=== PATIENT | female | born 1990 | race Caucasian/White ===

== ENCOUNTER 2018-04-27 15:37 | Day surgery (SDC) ==
[2018-04-27 16:15] LABS: #Eosinphils 0.1 thou/uL (0.0-0.7); #Lymphocytes 1.7 thou/uL (1.20-3.40); #Monocytes 0.8 thou/uL (0.11-0.59); %Basophils 0.3 % (0.0-1.0); %Eosinophils 1.1 % (0.0-10.0); %Lymphocytes 18.1 % (21.0-51.0); %Monocytes 8.4 % (0.0-10.0); %Neutrophils 72.1 % (42.0-75.0); Mean Corpuscular HGB CONC 34.7 g/dL (32.0-36.0); Mean Corpuscular Hemoglobin 28.8 pg (27.0-31.0); Mean Corpuscular Volume 83.1 fl (81.0-99.0); Mean Platelet Volume 6.5 fL (7.4-10.4); Platelet Count 289 thou/uL (130-400); RBC Distribution Width 13.4 % (11.5-14.5); Red Blood Cell (RBC) Count 4.16 mill/uL (4.20-5.40); White Blood Cell (WBC) Count 9.6 thou/uL (4.8-10.8)
[2018-04-27 16:37] LABS: ALT (SGPT) 87 U/L (8-55); AST (SGOT) 40 U/L (5-34); Albumin 3.6 g/dL (3.5-5.0); Alkaline Phosphatase 115 U/L (40-150); Anion Gap 14 mmol/L (10-20); BUN (Urea Nitrogen) 6 mg/dL (7.0-18.7); Bilirubin, Total 0.2 mg/dL (0.2-1.2); Calc. Creatinine Clearance 0 mL/min (70-130); Calcium 9.8 mg/dL (7.8-10.44); Carbon Dioxide 23 mmol/L (22-29); Chloride 103 mmol/L (98-107); Estimated GFR-MDRD Greater than 90; Globulin 3.7 g/dL (2.4-3.5); Glucose 79 mg/dL (70-105); Protein, Total 7.3 g/dL (6.0-8.3); Sodium 136 mmol/L (136-145)
[2018-04-27 16:58] VITALS: BMI 50.6
[2018-04-27 17:04] VITALS: BP 136/79; TEMP 98.6
--- NOTE | 2018-04-27 21:51 | PRG ---
DATE OF ENCOUNTER: 04/27/2018 OB ER ENCOUNTER PRIMARY PERFUSIONIST: Dr. Guilherme Moura. CHIEF COMPLAINT: Elevated blood pressure in clinic. HISTORY OF PRESENT ILLNESS: Patient is a 28-year-old G1, P0 female with an intrauterine at 34 weeks and 4 days, who was seen in clinic for routine visit and noted to have elevated blood press ure 140/100. Patient was sent to labor and delivery for further evaluation. Patient denies headache , fever, or fall. She denies abdominal pain. She reports that she has two cavities that are causing her a lot of pain and takes Tylenol and Tylenol No. 3 to help manage it. She has an appointment bennett jose to have a root canal done and extraction of another tooth. Patient denies taking any other ARB s or medication outside has been prescribed. Patient denies abdominal pain, denies shortness of gosia th, chest pain, nausea, vomiting, diarrhea, constipation, hip problems, knee problems, muscle weaknes s, vaginal bleeding, leakage of fluid, urinary problems, urgency, or frequency. PAST MEDICAL HISTORY: Cavities. PAST SURGICAL HISTORY: None. SOCIAL HISTORY: Patient admits to tobacco use at about 2 cigarettes a day. Denies drug or alcohol u se. ALLERGIES: No known drug allergies. FAMILY HISTORY: Noncontributory. REVIEW OF SYSTEMS: Per HPI. OB LABS: Unavailable. PHYSICAL EXAMINATION: VITAL SIGNS: Blood pressures have been in primarily 1-teens to 120s/60s to 70s. She did have a sing le blood pressure at 143/86. During counseling, pulse rate in the 80s, respiratory rate 20, satting 100% on room air, temperature 98.7. GENERAL: She appears to be in no acute distress. She is alert and oriented, cooperative and pleasan t to interact with. HEENT: Normocephalic, atraumatic. LUNGS: Clear to auscultation bilaterally. HEART: Regular rate and rhythm. ABDOMEN: Soft and nontender. She has no right upper quadrant tenderness to palpation. EXTREMITIES: Nontender, nonedematous. GENITOURINARY: Has been deferred. heart tracing performed and noted to be in the 130s with moderate long-term variability, positi ve accelerations, no decelerations. She has no contractions visible on the monitor. CMP was signifi cant with elevated AST of 40 and ALT of 87. Her creatinine 0.54 and potassium 4.0. CBC: White coun t 9.6, hemoglobin 12, hematocrit 34.6 and platelets 289,000. Urine iccmjtb-re-lututoehrn ratio was l ess than 0.23. ASSESSMENT AND PLAN: Patient is a 28-year-old G1, P0 female with a toothache and known cavity schedu led for a root canal and extraction tomorrow, who presented with elevated blood pressures. She has h ad primarily normal pressures here with a single elevation. She has no proteinuria of significance a nd her isolated LFTs though elevated are mild at this time. Patient has been taking Tylenol and Tyle nol No. 3 to manage her tooth pain. We did review the limitations on how much she can take and the p atient will be following up with her primary OB, Dr. Moura for repeat testing. Patient is being disc harged to home with precautions.
== END 2018-04-27 18:47 | disposition home or self-care (01) ==
LOC: L&D/OP 15:37
PROVIDERS: ATTEND Obstetrics & Gynecology
DX: O99.89 Other specified diseases and conditions complicating pregnancy, childbirth and the puerperium (principal); R03.0 Elevated blood-pressure reading, without diagnosis of hypertension; O99.333 Smoking (tobacco) complicating pregnancy, third trimester; F17.210 Nicotine dependence, cigarettes, uncomplicated; K08.89 Other specified disorders of teeth and supporting structures; Z3A.34 34 weeks gestation of pregnancy
CPT/HCPCS: 36415; 80053; 82570; 84156; 85025; 99283

== ENCOUNTER 2018-05-03 23:29 | Inpatient (IN) | payer MEDICAID, OTHER ==
[2018-05-04 00:14] VITALS: BMI 50.6
[2018-05-04] MEDS ORDERED: Ondansetron HCl/PF 4 MG/2 ML Vial IVP PRN (00:37)
[2018-05-04] MEDS ORDERED: Zolpidem Tartrate 5 MG TAB PO PRN (00:37)
[2018-05-04] MEDS ORDERED: Promethazine HCl 25 MG/ML VIAL IM PRN (00:37)
[2018-05-04] MEDS: Lactated Ringer's 1,000 ML IV SCH ×2 (01:45→07:32)
[2018-05-04 01:55] LABS: Creatinine, Urine 31.33 mg/dL (47-110); Protein, Urine Random Quant Less than 10 mg/dL
[2018-05-04 02:23] LABS: Hemoglobin 11.4 g/dL (12.0-16.0); Mean Corpuscular HGB CONC 34.4 g/dL (32.0-36.0); Mean Corpuscular Hemoglobin 28.4 pg (27.0-31.0); Mean Corpuscular Volume 82.7 fL (78.0-98.0); Mean Platelet Volume 6.8 fL (7.4-10.4); Platelet Count 316 thou/uL (130-400); RBC Distribution Width 13.6 % (11.5-14.5); Red Blood Cell (RBC) Count 4.02 mill/uL (4.20-5.40); White Blood Cell (WBC) Count 8.8 thou/uL (4.8-10.8)
[2018-05-04 02:42] LABS: ALT (SGPT) 143 U/L (8-55); AST (SGOT) 55 U/L (5-34); Albumin 3.5 g/dL (3.5-5.0); Alkaline Phosphatase 109 U/L (40-150); Anion Gap 14 mmol/L (10-20); BUN (Urea Nitrogen) 8 mg/dL (7.0-18.7); Bilirubin, Total 0.2 mg/dL (0.2-1.2); Calc. Creatinine Clearance 303 mL/min (70-130); Calcium 9.8 mg/dL (7.8-10.44); Carbon Dioxide 21 mmol/L (22-29); Chloride 106 mmol/L (98-107); Estimated GFR-MDRD Greater than 90; Globulin 3.4 g/dL (2.4-3.5); Glucose 90 mg/dL (70-105); Protein, Total 6.9 g/dL (6.0-8.3); Sodium 137 mmol/L (136-145)
[2018-05-04 03:00] LABS: HBSAg Index 0.16 S/CO (0-0.99); Hep B Surf Ag Non-Reactive S/CO (NonReactive)
--- NOTE | 2018-05-04 06:20 | HP ---
DATE OF ADMISSION: 05/04/2018 REASON FOR ADMISSION: Elevated blood pressures suspected possible early severe PIH versus HELLP synd luis angel at 35-36 weeks gestation. HISTORY OF PRESENT ILLNESS: Ms. Saunders is a 28-year-old 1, para 0 with EDC of 06/02/[address] Moura. The patient has been noted to have some slightly elevated blood pressures in the off ice and had LFTs performed last week and then yesterday. The ALT and AST had doubled. The patient's blood pressures had been good and she was brought in for further evaluation. OB AND MAINTENANCE FITTER HISTORY: As noted. The patient's White's classification A1 gestational diabetes. Blood type A positive, antibody negative, group B strep not done. Other labs not available on the chart. PAST MEDICAL HISTORY: The patient states that she had some essential hypertension in the past. PAST SURGICAL HISTORY: Denies. ALLERGIES: Denies. MEDICATIONS: vitamins. FAMILY HISTORY/REVIEW OF SYSTEMS: Noncontributory. PHYSICAL EXAMINATION: GENERAL: Obese white female in no acute distress. VITAL SIGNS: Initial blood pressures 120s to 130s over 80s. Highest blood pressure has been 143/86. Average blood pressures have been in 1-teens to 120s, temperature 98.7, respirations 18, pulse 85. HEENT: Within normal limits. LUNGS: Clear to auscultation bilaterally. HEART: Regular rate and rhythm. ABDOMEN: Soft and nontender. She does not have any significant right upper quadrant tenderness. No CVA tenderness noted. PELVIC: Vulva is without lesions. Vagina is without discharge. Group B strep culture collected. C ervix is fingertip, long, and high, presenting part not palpated. EXTREMITIES: With 1+ edema. RADIOLOGY: The patient had an ultrasound at [facility] last week which was reporte d as normal rate of growth, cephalic presentation. LABORATORY STUDIES: The patient's hematocrit is within normal limits at 33%, platelet count is 316, white count is 8.8, creatinine is within normal limits at 0.54, glucose was 90. AST is elevated at 5 5, ALT is elevated at 143 with normal range up 55. Urine protein was negative dip. A random urine p rotein is less than 10 and creatinine was 31.3 with a normal protein to creatinine ratio. IMPRESSION: Isolated elevated liver enzymes without other abnormality noted at 35-36 weeks gestation . PLAN: The patient was admitted, will follow up with Dr. Moura. Anticipate serial LFTs as well as bl ood pressures. Group B strep culture sent and we will follow up that result.
--- NOTE | 2018-05-04 08:22 | PDOC.LDPN ---
Labor & Delivery Progress Note - Subjective Subjective: comfortable, other (no itching, no pain, no N/V/D) - Objective Vital signs reviewed and normal: yes General: resting - Assessment (1) Elevated transaminase level Code(s): R74.0 - NONSPEC ELEV OF LEVELS OF TRANSAMNS & LACTIC ACID DEHYDRGNSE Current Visit: Yes Status: Acute (2) 35 weeks gestation of Code(s): Z3A.35 - 35 WEEKS GESTATION OF Current Visit: Yes Status : Acute Plan: other -: HD2 -Unexplained elevated transaminase level. Acute hepatitis panel and RUQ sono ordered, GI consult pending. Bile acids pending but no si/sx of cholestasis. BP normal with prolonged observation, concern for acute fatty liver of . Discussed plan of care with patient.
--- NOTE | 2018-05-04 08:26 | PDOC.LDPN ---
Labor & Delivery Progress Note - Subjective Subjective: comfortable - Objective Vital signs reviewed and normal: yes General: resting Uterine fundus: non tender Dilation: 3 Effacement: 50% Station: -2 FHT: category 1 AROM: clear fluid - Assessment (1) Elevated transaminase level Code(s): R74.0 - NONSPEC ELEV OF LEVELS OF TRANSAMNS & LACTIC ACID DEHYDRGNSE Current Visit: Yes Status: Acute (2) 35 weeks gestation of Code(s): Z3A.35 - 35 WEEKS GESTATION OF Current Visit: Yes Status : Acute Plan: continue plan of care, pitocin for augmentation
[2018-05-04 09:41] LABS: ALT (SGPT) 146 U/L (8-55); AST (SGOT) 61 U/L (5-34); Albumin 3.4 g/dL (3.5-5.0); Alkaline Phosphatase 107 U/L (40-150); Anion Gap 14 mmol/L (10-20); BUN (Urea Nitrogen) 5 mg/dL (7.0-18.7); Bilirubin, Total 0.3 mg/dL (0.2-1.2); Calc. Creatinine Clearance 334 mL/min (70-130); Calcium 9.6 mg/dL (7.8-10.44); Carbon Dioxide 23 mmol/L (22-29); Chloride 105 mmol/L (98-107); Estimated GFR-MDRD Greater than 90; Globulin 3.5 g/dL (2.4-3.5); Glucose 84 mg/dL (70-105); Potassium 3.6 mmol/L (3.5-5.1); Protein, Total 6.9 g/dL (6.0-8.3); Sodium 138 mmol/L (136-145)
[2018-05-04 10:01] LABS: HBCM Index 0.08 S/CO (0-0.79); Hep A IgM AB Non-Reactive (NonReactive); Hep A IgM S/CO 0.16 S/CO (0-0.79); Hep B Surf Ag Non-Reactive S/CO (NonReactive); Hep C IgG Ab Non-Reactive (NonReactive); Hep C Index 0.17 S/CO (0-0.79); Hepatitis B Core IGM Abs Non-Reactive (NonReactive)
--- NOTE | 2018-05-04 11:08 | ULT ---
RIGHT UPPER QUADRANT ULTRASOUND: Date: 05/04/18 HISTORY: 28-year-old female with elevated liver function tests. FINDINGS: Liver echogenicity is slight coarse. There are multiple mobile gallstones without overt gallbladder w all thickening or pericholecystic fluid. There is also minimal sludge within the gallbladder. Common duct is 0.5 cm. Visualized pancreas and right kidney are unremarkable. IMPRESSION: Multiple mobile gallstones with minimal sludge within the gallbladder without overt gallbladder wall thickening or pericholecystic fluid or ductal dilatation. Slightly coarse liver echogenicity. POS: [facility]
--- NOTE | 2018-05-04 11:48 | ULT ---
OB ULTRASOUND COMPLETE GREATER THAN 14 WEEKS: History: 28-year-old female with history of elevated LFTs. Evaluate for size and dates. FINDINGS: Exam is limited by body habitus and somewhat elevated gestational age. Single viable intrauterine fetus in cephalic presentation. The placenta is anterior. heart rate 139 beats/minute. Cervical length is not adequately visualized. Amniotic fluid is within normal limi ts with an ABDULLAHI of 10.9 cm. anatomy: anatomy is limited because of body habitus and gestational age. brain, four chamber heart, stomach, kidneys, cord insert and bladder are evaluated. biometry: BDP 9.3 cm - 37 weeks 5 days HC 33.4 cm - 38 weeks 1 day AC 34.1 cm - 38 weeks 0 day FL 7.4 cm - 37 weeks 6 days IMPRESSION: Gestational age average 37 weeks 6 days. EDC 05-19-18. Estimated weight 3345 grams. +/- 495 gram s in the 94th percentile. POS: [facility]
[2018-05-04 17:01] LABS: Syphilis Antibody Nonreactive (Nonreactive); Syphilis Antibody Index 0.03 S/CO (<1.00 Non-Reactive)
--- NOTE | 2018-05-04 17:15 | PDOC.LDPN ---
Labor & Delivery Progress Note - Subjective Subjective: comfortable - Objective Abnormal vital signs: persistent mild range General: resting - Assessment (1) Elevated transaminase level Code(s): R74.0 - NONSPEC ELEV OF LEVELS OF TRANSAMNS & LACTIC ACID DEHYDRGNSE Current Visit: Yes Status: Acute (2) 35 weeks gestation of Code(s): Z3A.35 - 35 WEEKS GESTATION OF Current Visit: Yes Status : Acute Plan: continue plan of care -: Mild range BP noted this afternoon-pt reports she is stressed dealing with mother in law. I discussed that with mild range BP and increasing LFTs that delivery will likely be indicated. Discussed Celestone for FLM now and repeat in 24hrs, serial monitoring of BP and repeat labs in the AM. GI consult pending. Will likely dispo for delivery plan in AM unless severe range BP noted tonight or VEGETABLE COOK sx reported.
[2018-05-04] MEDS: Betamet Acet/Betamet Na Ph 30 MG/5 ML VIAL IM SCH (17:29)
--- NOTE | 2018-05-05 00:53 | CON ---
DATE OF CONSULTATION: 05/04/2018 HISTORY OF PRESENT ILLNESS: The patient is a 28-year-old 1, para 0 with admission because of elevated blood pressure and abnormal LFTs. The patient is denying any abdominal pain, any nausea or vomiting. She has not had prior abnormalities with her liver in the past. She takes no medications . She does not drink alcohol. PAST MEDICAL HISTORY: Includes hypertension and gestational diabetes. PAST SURGICAL HISTORY: Negative. ALLERGIES: No known allergies. MEDICATIONS: Include vitamins. SOCIAL HISTORY: She is a former smoker, does not drink alcohol. FAMILY HISTORY: Negative for liver disease. REVIEW OF SYSTEMS: Constitutional: No fever, chills, or weight loss. Positive for weight gain with . HEENT: Negative for sore throat or earaches. Cardiovascular: Negative for chest pain or palpitation. Pulmonary: Negative for cough, shortness of breath or wheezing. Gastrointestinal: See above. : No hematuria or dysuria. Musculoskeletal: No joint pain or muscle weakness. Skin : No rashes. Neurologic: No numbness or seizure activity. PHYSICAL EXAMINATION: GENERAL: Shows an overweight, obese female, obviously . VITAL SIGNS: Temperature 98.4, pulse 85, respiratory rate 18, blood pressure 139/86. HEENT: Unremarkable. NECK: Supple. CHEST: Clear. CARDIOVASCULAR: Regular rate and rhythm. ABDOMEN: Shows a gravid uterus. No right upper quadrant tenderness is appreciable. LABORATORY: Shows a hemoglobin 11.4, hematocrit 33.3. LFTs show an AST of 55, ALT of 143, repeat wa s 61 and 146. Albumin is 3.4. Hepatitis panel was negative. Abdominal ultrasound showed changes co nsistent with fatty liver and gallstones, no ductal dilatation is appreciated. ASSESSMENT: 1. A 36-week . 2. Abnormal liver function tests - her abnormalities well within the range of fatty liver. There is no evidence of acute fatty liver of , although this could be early manifestation of that, o ther possibilities include HELLP syndrome or preeclampsia, although the patient's platelets are hugo l. My overall suspicion is this is a fatty liver. RECOMMENDATIONS: 1. Continue to monitor serial hemoglobin and hematocrit. 2. If transaminases are in the 200s-300s range, then stronger consideration would be given to one of the other syndromes as mentioned above.
[2018-05-05 07:07] LABS: #Lymphocytes 1.6 thou/uL (1.20-3.40); #Monocytes 0.6 thou/uL (0.11-0.59); #Neutrophils 6.9 thou/uL (1.40-6.50); %Basophils 0.1 % (0.0-1.0); %Eosinophils 0.4 % (0.0-10.0); %Lymphocytes 17.3 % (21.0-51.0); %Monocytes 6.8 % (0.0-10.0); %Neutrophils 75.4 % (42.0-75.0); Hemoglobin 11.6 g/dL (12.0-16.0); Mean Corpuscular HGB CONC 33.2 g/dL (32.0-36.0); Mean Corpuscular Hemoglobin 28.2 pg (27.0-31.0); Mean Corpuscular Volume 84.9 fL (78.0-98.0); Mean Platelet Volume 6.9 fL (7.4-10.4); Platelet Count 278 thou/uL (130-400); RBC Distribution Width 13.7 % (11.5-14.5); Red Blood Cell (RBC) Count 4.12 mill/uL (4.20-5.40); White Blood Cell (WBC) Count 9.1 thou/uL (4.8-10.8)
[2018-05-05 07:39] LABS: ALT (SGPT) 187 U/L (8-55); AST (SGOT) 85 U/L (5-34); Albumin 3.5 g/dL (3.5-5.0); Alkaline Phosphatase 114 U/L (40-150); Anion Gap 15 mmol/L (10-20); BUN (Urea Nitrogen) 6 mg/dL (7.0-18.7); Bilirubin, Total 0.2 mg/dL (0.2-1.2); Calc. Creatinine Clearance 303 mL/min (70-130); Carbon Dioxide 23 mmol/L (22-29); Chloride 106 mmol/L (98-107); Estimated GFR-MDRD Greater than 90; Globulin 3.6 g/dL (2.4-3.5); Glucose 110 mg/dL (70-105); Potassium 4.5 mmol/L (3.5-5.1); Protein, Total 7.1 g/dL (6.0-8.3); Sodium 139 mmol/L (136-145)
[2018-05-05] MEDS ORDERED: Ibuprofen 800 MG TAB PO PRN (08:47)
[2018-05-05] MEDS ORDERED: Lidocaine 1% (PF) 30 ML VIAL SC PRN (08:47)
[2018-05-05] MEDS ORDERED: NS / Oxytocin 40 units/1000ml 1,000 ML IV PRN (08:47)
[2018-05-05] MEDS ORDERED: Acetaminophen/Codeine 30-300mg Tablet PO PRN ×2 (08:47)
--- NOTE | 2018-05-05 08:53 | PDOC.LDPN ---
Labor & Delivery Progress Note - Subjective Subjective: comfortable - Objective Vital signs reviewed and normal: yes Abnormal vital signs: BP consistent 140/80-90s General: NAD FHT: category 1 - Assessment (1) Elevated transaminase level Code(s): R74.0 - NONSPEC ELEV OF LEVELS OF TRANSAMNS & LACTIC ACID DEHYDRGNSE Current Visit: Yes Status: Acute (2) 36 weeks gestation of Code(s): Z3A.36 - 36 WEEKS GESTATION OF Current Visit: Yes Status : Acute (3) Elevated blood pressure affecting in third trimester, antepartum Code(s): O16.3 - UNSPECIFIED MATERNAL HYPERTENSION, THIRD TRIMESTER Current Visit: Yes Status: Acute Plan: other -: A/P: 28yo G1 with increase BP to persistent mild range BP with lab abnormalities , steadily increasing transaminase levels. S/p GI consult yesterday with lab abnormalities suspected to be due to acute fatty liver vs PIH related. Pt received Celestone x 1 dose yesterday in anticipation in possible change in plan to delivery. We discussed indication for delivery today in detail as well as methods used for IOL. We discussed oral cytotec this AM, possible Cook balloon placement vs pitocin when cervix is more favorable. We discussed magnesium for seizure prophylaxis for any EMBOSSING TOOLSETTER or BP increase to severe range. Pt questions answered in detail.
[2018-05-05] MEDS ORDERED: Penicillin G Potassium 5 MILL.UNITS in Sodium Chloride 0.9% 100 ML IVPB SCH (09:00)
[2018-05-05] MEDS: Lactated Ringer's 1,000 ML IV SCH (09:15)
[2018-05-05] MEDS: Misoprostol 100 MCG TAB PO SCH ×5 (09:41→21:00)
[2018-05-05] MEDS: Penicillin G 2.5 MILL.units 2.5 MILL.UNITS in Premix Bag 1 BAG IVPB SCH ×3 (12:53→21:28)
--- NOTE | 2018-05-05 16:44 | PDOC.EVN ---
Event Note - Event Note Event Note: On phone with Martell, we will cover tonight until derrick in AM...on cytotec now. Case reviewed.
[2018-05-05] MEDS: Betamet Acet/Betamet Na Ph 30 MG/5 ML VIAL IM SCH (18:34)
--- NOTE | 2018-05-05 18:41 | PDOC.LDPN ---
Labor & Delivery Progress Note - Objective Vital signs reviewed and normal: yes (Last BP was 120/80) General: NAD Uterine fundus: non tender SVE: FT at 1800 by RN Dilation: FT Effacement: 25% Station: -2 FHT: category 1 [place] contractions every: few - Assessment (1) 36 weeks gestation of Code(s): Z3A.36 - 36 WEEKS GESTATION OF Current Visit: Yes Status : Acute (2) Elevated blood pressure affecting in third trimester, antepartum Code(s): O16.3 - UNSPECIFIED MATERNAL HYPERTENSION, THIRD TRIMESTER Current Visit: Yes Status: Acute (3) Elevated transaminase level Code(s): R74.0 - NONSPEC ELEV OF LEVELS OF TRANSAMNS & LACTIC ACID DEHYDRGNSE Current Visit: Yes Status: Acute Plan: continue plan of care (I have seen the patient at bedside. Plan of care reviewed. We will do a total of 6 oral cytotec doses (50mg). Induction started at 0900 this am so we will need to reevaluate plan at 24 hour trial of induction. Cook balloon ideal once cervix dilated to allow it. Celestone #2 pending. Patient's questions answered.)
--- NOTE | 2018-05-05 22:06 | PDOC.EVN ---
Event Note - Event Note Event Note: Cytotec #5 given at 2100. Plan reviewed with Conor
--- NOTE | 2018-05-05 22:57 | PDOC.EVN ---
Event Note - Event Note Event Note: Received report from Dr. Sinclair. Pt. is sleeping Will get last dose of oral Cytotec at midnight. Will start pitocin at 4 AM. FHTs are reassuring. Continue present plan of care.
[2018-05-06] MEDS: Penicillin G 2.5 MILL.units 2.5 MILL.UNITS in Premix Bag 1 BAG IVPB SCH ×4 (01:33→13:00)
[2018-05-06] MEDS ORDERED: NS w/ Oxytocin 10 units 500 ML IV SCH (04:15)
[2018-05-06] MEDS: Misoprostol 100 MCG TAB PO SCH ×3 (07:09→09:02)
[2018-05-06] MEDS: Lactated Ringer's 1,000 ML IV SCH ×3 (07:10→07:29)
[2018-05-06] MEDS: Butorphanol Tartrate 1 MG/ML VIAL SLOW IVP PRN ×2 (10:09→11:51)
--- NOTE | 2018-05-06 10:12 | PDOC.LDPN ---
Labor & Delivery Progress Note - Subjective Subjective: comfortable ( some hip pain, no pih sx) - Objective Vital signs reviewed and normal: yes (occ mild range bp) General: NAD Uterine fundus: non tender Dilation: 2 Effacement: 50% Station: -2 (arom clear) FHT: category 1 [place] contractions every: 5min AROM: clear fluid - Assessment (1) Severe preeclampsia Code(s): O14.10 - SEVERE PRE-ECLAMPSIA, UNSPECIFIED TRIMESTER Current Visit: Yes Status: Acute Qualifiers: Trimester: third trimester Qualified Code(s): O14.13 - Severe pre-eclampsia , third trimester (2) 36 weeks gestation of Code(s): Z3A.36 - 36 WEEKS GESTATION OF Current Visit: Yes Status : Acute Plan: labor augmentation -: IUP at 36w1d with severe features of preeclampsia based on increasing LFTs and elevated BP. No sx PIH, mild range BPs, recheck pih labs this am, Mag once active labor. Do not feel pt case represents acute fatty liver as glucose normal A1GDM- glucose with am labs. RUQ sono shows gallstones and sludge, will fu with GS as outpt, asx at this time. IOL- cont pitocin, Pt declined Cook, SVE appropriate for AROM, performed clear fluid noted. Pn pcn for gbs ppx s/p bmz x 2 for prematurity FHT reassuring.
[2018-05-06 10:35] LABS: #Lymphocytes 1.7 thou/uL (1.20-3.40); #Monocytes 0.9 thou/uL (0.11-0.59); #Neutrophils 7.9 thou/uL (1.40-6.50); %Basophils 0.2 % (0.0-1.0); %Eosinophils 0.3 % (0.0-10.0); %Lymphocytes 16.1 % (21.0-51.0); %Monocytes 8.5 % (0.0-10.0); %Neutrophils 74.9 % (42.0-75.0); Hemoglobin 11.8 g/dL (12.0-16.0); Mean Corpuscular HGB CONC 33.4 g/dL (32.0-36.0); Mean Corpuscular Hemoglobin 27.8 pg (27.0-31.0); Mean Corpuscular Volume 83.3 fL (78.0-98.0); Mean Platelet Volume 6.5 fL (7.4-10.4); Platelet Count 304 thou/uL (130-400); RBC Distribution Width 13.8 % (11.5-14.5); Red Blood Cell (RBC) Count 4.23 mill/uL (4.20-5.40); White Blood Cell (WBC) Count 10.5 thou/uL (4.8-10.8)
[2018-05-06 11:05] LABS: ALT (SGPT) 263 U/L (8-55); AST (SGOT) 127 U/L (5-34); Albumin 3.6 g/dL (3.5-5.0); Alkaline Phosphatase 112 U/L (40-150); Anion Gap 14 mmol/L (10-20); BUN (Urea Nitrogen) 5 mg/dL (7.0-18.7); Bilirubin, Total 0.3 mg/dL (0.2-1.2); Calc. Creatinine Clearance 341 mL/min (70-130); Calcium 9.5 mg/dL (7.8-10.44); Carbon Dioxide 21 mmol/L (22-29); Chloride 107 mmol/L (98-107); Estimated GFR-MDRD Greater than 90; Glucose 97 mg/dL (70-105); Potassium 3.9 mmol/L (3.5-5.1); Protein, Total 6.6 g/dL (6.0-8.3); Sodium 138 mmol/L (136-145)
[2018-05-06] MEDS ORDERED: Bicitra 30 ML UDCUP ONE (13:25)
[2018-05-06] MEDS ORDERED: CEFAZOLIN/Water 2 GM/20 ML SYRINGE SLOW IVP SCH (13:30)
[2018-05-06] MEDS ORDERED: Fentanyl 100 MCG/2 ML VIAL ONE ×2 (13:37→13:44)
[2018-05-06] MEDS ORDERED: Carboprost 250 MCG/ML AMP ONE (13:37)
[2018-05-06] MEDS ORDERED: Misoprostol 200 MCG TAB ONE (13:38)
[2018-05-06] MEDS: Carboprost 250 MCG/ML AMP ONE ×2 (13:39→15:12)
[2018-05-06] MEDS ORDERED: Midazolam HCl 2 mg/2 ml Vial ONE (13:43)
[2018-05-06] MEDS ORDERED: Ondansetron HCl/PF 4 MG/2 ML Vial IVP PRN ×4 (13:55→15:05)
[2018-05-06] MEDS ORDERED: Eucerin (Mineral Oil/Petrolatum,White) 30 gm Jar TOP PRN (13:55)
[2018-05-06] MEDS ORDERED: Naloxone HCl 0.4 mg/ml Vial IVP PRN ×2 (13:55)
[2018-05-06] MEDS ORDERED: Meperidine HCl/PF 25 MG/ML VIAL SLOW IVP PRN (13:55)
[2018-05-06] MEDS ORDERED: Promethazine HCl 25 MG/ML VIAL IM PRN ×2 (13:55→14:05)
[2018-05-06] MEDS ORDERED: Promethazine HCl 25 MG SUPP PR PRN (13:55)
[2018-05-06] MEDS ORDERED: Ketorolac Tromethamine 30 MG/ML VIAL IVP PRN ×2 (13:55→18:20)
[2018-05-06] MEDS ORDERED: HYDROmorphone 2 MG/ML VIAL SLOW IVP PRN (13:55)
[2018-05-06] MEDS ORDERED: diphenhydrAMINE 50 MG/ML VIAL IVP PRN ×2 (13:55→14:05)
[2018-05-06] MEDS ORDERED: Naloxone HCl 0.4 mg/ml Vial IV PRN ×2 (13:55→14:05)
[2018-05-06] MEDS ORDERED: Glycopyrrolate 0.2 MG/ML 5 ML SYRINGE ONE (13:59)
[2018-05-06] MEDS ORDERED: Communication Order-Pharmacy FS SCH ×2 (14:00→14:15)
[2018-05-06] MEDS ORDERED: Ketorolac Tromethamine 30 MG/ML VIAL IVP SCH (14:00)
[2018-05-06] MEDS ORDERED: diphenhydrAMINE 50 MG/ML VIAL IM PRN (14:05)
[2018-05-06] MEDS ORDERED: diphenhydrAMINE 25 MG CAP PO PRN (14:05)
[2018-05-06] MEDS ORDERED: Zolpidem Tartrate 5 MG TAB PO PRN (14:05)
[2018-05-06] MEDS ORDERED: Morphine CADD 1 MG/ML CADD IVPB PRN (14:05)
[2018-05-06] MEDS ORDERED: Fentanyl 250 MCG/5 ML VIAL ONE (14:13)
--- NOTE | 2018-05-06 14:20 | PDOC.OPDEL ---
OB Operative/Delivery Note Delivery Dr/Surgeon: Gene Assist: Horacio Pre-Delivery Diagnosis: non-reassuring tracing (cord prolapse, 36w IUP, PEC with severe features) Procedure/Post Delivery Dx: primary low transverse CS (stat) Weeks gestation: 36 Anesthesia: other (general) - Findings A Sex: male - Additional Findings/Plan Placenta delivered: spontaneous findings: low transverse hysterotomy without extension, normal uterus, normal tubes, normal ovaries Estimated blood loss: 1200 Compilations/Other Findings: Cord prolapse with variables and min btbv, head elevated off cord and rushed to OR with vaginal hand by MD then switched out to RN in OR. Prepped and draped, stat CS carried out and infant delivered shortly after cut. Cord gas collected and placenta delivered, to path. Uterus boggy and hemabate and cytotec called for. Uterus closed hemabate and cytotec given, additional dose of hemabate given due to vaginal trickle on exam. following this and complete 2 layer closure uterine tone improved and appropriate lochia noted. Cord gas pending. Post delivery plan: recovery in LICU (Mag recovery)
[2018-05-06] MEDS ORDERED: Magnesium Sulfate 20 gm/500 ml 20 GM/500 ML BAG ONE (14:38)
[2018-05-06] MEDS ORDERED: Morphine CADD 100 ML ONE (14:46)
[2018-05-06 14:49] LABS: Actual Bicarbonate (HCO3a) 27.8 mEq/L (22-28); Base Excess (BEa) -2.2 mEq/L (-2.0 to +3.0)
[2018-05-06] MEDS ORDERED: Lanolin Ointment 7 GM TUBE TOP PRN (15:05)
[2018-05-06] MEDS ORDERED: HYDROcodone/Acetaminophen 5/325 mg Tablet PO PRN ×2 (15:05)
[2018-05-06] MEDS ORDERED: Adacel (T-DAP) 0.5 ML VIAL IM ONE (15:05)
[2018-05-06] MEDS ORDERED: Calcium Gluconate 4.6 MEQ in Sodium Chloride 0.9% 100 ML IVPB PRN (15:05)
[2018-05-06] MEDS ORDERED: Magnesium Sulfate 20 GM/WATER 500 ML BAG IVPB SCH (15:05)
[2018-05-06] MEDS ORDERED: Ferrous Sulfate 325 MG TAB PO SCH (21:00)
[2018-05-06] MEDS: Docusate Calcium (SURFAK) 240 MG CAP PO SCH (21:51)
[2018-05-06] MEDS: Magnesium Sulfate 20 gm/500 ml 20 GM/500 ML BAG IVPB SCH (23:27)
[2018-05-07] MEDS ORDERED: Ketorolac Tromethamine 30 MG/ML VIAL ONE ×2 (03:43→16:09)
[2018-05-07] MEDS: Ketorolac Tromethamine 30 MG/ML VIAL IVP PRN ×2 (03:47→16:12)
[2018-05-07] MEDS: Lactated Ringer's 1,000 ML IV SCH (05:03)
[2018-05-07 05:48] LABS: Hemoglobin 9.5 g/dL (12.0-16.0); Mean Corpuscular HGB CONC 32.9 g/dL (32.0-36.0); Mean Corpuscular Hemoglobin 27.7 pg (27.0-31.0); Mean Platelet Volume 6.7 fL (7.4-10.4); Platelet Count 312 thou/uL (130-400); RBC Distribution Width 13.8 % (11.5-14.5); Red Blood Cell (RBC) Count 3.42 mill/uL (4.20-5.40)
--- NOTE | 2018-05-07 08:18 | PDOC.PP ---
Post Progress Note Post Day #: 1 PO intake tolerated: no Flatus: no Ambulation: no Vital Signs (12 hours) Temp Pulse Resp 05/07/18 04:00 98.0 F 78 18 05/07/18 03:00 98.0 F 05/07/18 00:00 98.2 F 75 18 05/06/18 23:00 98.2 F Weight Weight 268 lb - Physical Examination General: NAD Cardiovascular: RRR Respiratory: non-labored breathing Abdominal: no distention, appropriately TTP Extremities: negative homans (B) Skin: no rash Neurological: no gross focal deficits (DTR 2+) Psychiatric: normal affect Result Diagrams: 05/07/18 05:29 05/06/18 10:29 Additional Labs: Post Labs Blood Type A POSITIVE 05/04/18 02:35 Hep Bs Antigen Non-Reactive S/CO (NonReactive) 05/04/18 08:35 (1) Umbilical cord prolapse in labor and delivery, delivered Code(s): O69.0XX0 - LABOR AND DELIVERY COMPLICATED BY PROLAPSE OF CORD, UNSP Status: Acute (2) 36 weeks gestation of Code(s): Z3A.36 - 36 WEEKS GESTATION OF Status: Acute (3) Severe preeclampsia Code(s): O14.10 - SEVERE PRE-ECLAMPSIA, UNSPECIFIED TRIMESTER Status: Acute Qualifiers: Trimester: third trimester Qualified Code(s): O14.13 - Severe pre-eclampsia , third trimester - Assessment/Plan POD1 from stat PCS for cord prolapse. VSSAF, severe range BPs yesterday, now wnl. Severe PEC- on mag for severe features, BP wnl, trend labs this am, UOP good, no sx mag toxicity. Postop- Hgb appropriate anemia due to surgical blood loss, no sx of ongoing bleeding. Cont Iron once ROBF. Routine advances. 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 Gallstones- FU GS outpt. DC Mag at 24hr and transfer to floor
[2018-05-07] MEDS: Prenatal Vitamin 1 TAB PO SCH (09:21)
[2018-05-07] MEDS: Docusate Calcium (SURFAK) 240 MG CAP PO SCH ×2 (09:21→22:09)
--- NOTE | 2018-05-07 09:48 | OP ---
DATE OF OPERATION: 05/06/2018 PREOPERATIVE DIAGNOSES: 1. Cord prolapse. 2. Severe preeclampsia. 3. Intrauterine at 36 weeks. 4. A1GDM 5. Obesity. POSTOPERATIVE DIAGNOSES: 1. Cord prolapse. 2. Severe preeclampsia. 3. Intrauterine at 36 weeks. 4. A1GDM 5. Obesity. 6. Uterine atony PROCEDURE: Stat primary low transverse section via Pfannenstiel skin incision. ATTENDING SURGEON: Karina Mills M.D. STONE UNLOADER: Bobby Leonard. ANESTHESIA: General endotracheal. ESTIMATED BLOOD LOSS: 1200 mL. IVF: 1 liter crystalloid. URINE OUTPUT: 700 mL of clear urine. COMPLICATIONS: None. DRAINS: Tracy catheter. PATHOLOGY: Placenta. FINDINGS: On arrival to the operating room, the cord was palpable with a pulse that was decreased, most likely in the 80s. The patient was prepped and draped in an emergent manner after prepping with chlorhexidine and findings included a male in cephalic presentation with clear amniotic fluid, Apgars pending, weight 6 pounds and 15 ounces. Cord pH was 7.19, pCO2 is 74.1, base excess negative 2.2. She had a hysterotomy without extension. Normal uterus, ovaries and tubes bilaterally. The uterus was atonic most likely secondary to general anesthesia that eventually resolved with infusion of Pitocin, 2 doses of Hemabate and 800 mcg of Cytotec placed in the uterus. OPERATIVE INDICATIONS: A 28-year-old G1, P0, had been admitted to Labor and Delivery at 36 weeks secondary to increasing LFTs. She developed intermittent mild range blood pressures. She had normal kidney function and negative protein in her urine. She received 2 doses of betamethasone and remained asymptomatic from a preeclampsia standpoint. She had liver enzymes that were checked on a daily basis that were increasing and met criteria for preeclampsia based on elevated blood pressures and abnormal liver enzymes and therefore she was dispositioned for induction of labor. She received oral Cytotec over the course of approximately 24 hours and then Pitocin augmentation. She progressed to 2 cm and 50% effaced and was artificially ruptured. On the morning of 2017, the patient began having more painful contractions and due to difficulty with contraction monitoring, an intrauterine pressure catheter was placed. At approximately 10:00 a.m., the patient began having some variable decels and intermittent minimal variability. Amnioinfusion was began by the nurse, which did improve the variable decels, however, she continued to have mild variables with the majority of her contractions. On my sterile vaginal exam at approximately 1:15 p.m., she was 4 cm dilated, 70% effaced and -2 station. The head was palpable; however, there was a cord just to the left of the head and at this point, stat was called secondary to cord prolapse. My hand remained in the vagina on the way back to the operating room. OPERATIVE TECHNIQUE: Once the patient arrived in the operating room, she was moved to the table with my hand still in place in the vagina holding the head up off the cord. The cord had a palpable pulse, was approximately in the 80s. The patient was secured to the bed and was prepped and draped with chlorhexidine and at that time, the nurse and I switched out so that I could scrubbed in and the patient was put to sleep and after insertion of the ET tube , skin incision was made with a knife and carried down to the fascia with the knife and the subcutaneous tissue was manually dissected. The fascia was incised with a knife and manually extended bilaterally. The superior aspect of the fascia was tented with 2 Kochers and dissected off the rectus with the Mayos. The inferior aspect of the fascia was tented with 2 Kochers and dissected off the rectus to the pubic symphysis and the peritoneum was bluntly entered and manually retracted and the bladder blade was placed. The lower uterine segment was incised in a transverse fashion and extended with the Perkins maneuver. The infant's head was brought to the hysterotomy and delivered with fundal pressure. The infant had good tone and was crying quickly after . The cord was clamped and handed to awaiting archana team. Cord gases obtained and placenta was spontaneously delivered and sent for pathology. The uterus was noted to be boggy and was exteriorized and cleared of all clots and debris and uterotonics were called for. At that time, Pitocin was infusing. The hysterotomy was then repaired with #1 Monocryl in a running locking fashion. The uterus was still boggy and Hemabate was given x1 dose. Prior to complete closure of the hysterotomy, 800 mcg of Cytotec was placed inside the uterus. A second imbricating layer of #1 Monocryl was placed over the hysterotomy in a horizontal fashion and hemostasis was noted of the hysterotomy. The posterior cul-de-sac was lapped out and the uterus was placed back into the abdomen. Tone was still noted to not have improved much; however , the patient was not actively bleeding. Hemabate again was called for. After 15 minutes, pelvis was irrigated copiously and suctioned. There was some welling up of bright red blood with swirling and bladder blade was placed and the pelvis was thoroughly inspected including the broad ligament and the hysterotomy as well. No identifiable areas of bleeding were noted and therefore , the uterus was exteriorized once again and examined posteriorly. There were no injuries to the broad ligament or posterior uterus that were identified and therefore, the uterus was placed back in the abdomen. The vagina was checked by the nurse at that time and there was an active trickle of blood noted. The second dose of Hemabate had been given and the uterus was placed back into the abdomen and again observation for bleeding was continued. The rectus muscles were examined and noted to be hemostatic. The peritoneal edges were also examined. The bladder was examined and there was no active bleeding from this area. The second dose of Hemabate did improve the uterine tone and the welling up of bright red blood in the pelvis was noted to markedly decrease and closure of the fascia was felt to be appropriate. At that time, the fascia was then reapproximated with an 0 PDS x2 sutures with excellent reapproximation. The subcutaneous tissue was irrigated and cauterized of any bleeders and reapproximated with 2 layers of 2-0 plain gut in a running fashion. Skin was closed with 4-0 Monocryl in subcuticular fashion. Dermabond was applied. The patient tolerated procedure well. Sponge, lap, needle counts were correct x2. The patient received Ancef 2 grams just prior to skin incision. MTDD
[2018-05-07] MEDS: Magnesium Sulfate 20 gm/500 ml 20 GM/500 ML BAG IVPB SCH (09:56)
[2018-05-07 10:09] LABS: ALT (SGPT) 232 U/L (8-55); AST (SGOT) 98 U/L (5-34); Alkaline Phosphatase 95 U/L (40-150); Bilirubin, Direct 0.2 mg/dL (0.1-0.3); Bilirubin, Total 0.4 mg/dL (0.2-1.2); Protein, Total 6.1 g/dL (6.0-8.3)
[2018-05-07] MEDS: Simethicone Chewable 80 MG TAB PO PRN ×2 (16:50→18:57)
[2018-05-07] MEDS ORDERED: Ibuprofen 800 MG TAB PO SCH (17:54)
[2018-05-07] MEDS: Ibuprofen 800 MG TAB PO SCH (22:09)
[2018-05-08] MEDS: Ibuprofen 800 MG TAB PO SCH ×4 (05:42→21:40)
[2018-05-08 07:01] LABS: ALT (SGPT) 226 U/L (8-55); AST (SGOT) 79 U/L (5-34); Albumin 3.2 g/dL (3.5-5.0); Alkaline Phosphatase 93 U/L (40-150); Bilirubin, Direct 0.1 mg/dL (0.1-0.3); Bilirubin, Total 0.3 mg/dL (0.2-1.2); Protein, Total 6.6 g/dL (6.0-8.3)
--- NOTE | 2018-05-08 07:39 | PDOC.PP ---
Post Progress Note Post Day #: 2 Subjective: Doing well. Had significant pain overnight but subsided after passing gas. No complaints currently. PO intake tolerated: yes Flatus: yes Ambulation: yes Vital Signs (12 hours) Temp Pulse Resp BP BP 05/08/18 05:46 98.5 F 96 18 109/55 L 05/07/18 23:55 98.8 F 88 18 120/65 05/07/18 20:00 97.9 F 92 18 111/57 L Weight Weight 268 lb - Physical Examination General: NAD Respiratory: non-labored breathing Abdominal: lochia (normal), no distention, appropriately TTP Fundus firm & at: U-3 Skin: CS incision dry & intact, no rash Neurological: no gross focal deficits Psychiatric: A&Ox3, normal affect Result Diagrams: 05/07/18 05:29 05/06/18 10:29 Additional Labs: Post Labs Blood Type A POSITIVE 05/04/18 02:35 Hep Bs Antigen Non-Reactive S/CO (NonReactive) 05/04/18 08:35 (1) delivery delivered Code(s): O82 - ENCOUNTER FOR DELIVERY WITHOUT INDICATION Status: Acute (2) Umbilical cord prolapse in labor and delivery, delivered Code(s): O69.0XX0 - LABOR AND DELIVERY COMPLICATED BY PROLAPSE OF CORD, UNSP Status: Acute - Assessment/Plan BPs normal, s/p Mag. Labs trending toward normal. Continue management. Possible d/c tomorrow.
[2018-05-08] MEDS: Prenatal Vitamin 1 TAB PO SCH (08:59)
[2018-05-08] MEDS: Docusate Calcium (SURFAK) 240 MG CAP PO SCH ×2 (08:59→21:32)
[2018-05-08] MEDS: Simethicone Chewable 80 MG TAB PO PRN (14:41)
[2018-05-09] MEDS: Ibuprofen 800 MG TAB PO SCH (05:02)
--- NOTE | 2018-05-09 06:25 | PDOC.EVN ---
Event Note - Event Note Event Note: DISCHARGE NOTE Admit date: 05/03/18 Discharge date: 05/09/18 Diagnosis: Abnormal LFTs Severe PIH Cord prolapse Procedure: labor induction (cytotec), primary urgent CS Course: patient wa admitted by Dr Moura for rising LFTS and 140s/90s BPs. She was started on oraL CYTOTEC FOR INDUCTION. During this induction, she was found to have a cord prolapse (Gene exam) at 3cm. She underwent a urgent CS. I evaluated the patient on POD 3 (05/09/18). No SIMPSON, no RUQ pain. BPs normal excpet one 140/89 Incision C/D/I sutured. Good Bowel Sounds. OK for discharge with lab and BP check this week with [facility]. LFTS were downward trending at prior check. This information was given to the patient. Adele simental (greem sheet) completed as well. Hpome with tylenol #3 (10 tabs) and motrin prn.
--- NOTE | 2018-05-09 06:26 | PDOC.PP ---
Post Progress Note Post Day #: 3 Subjective: Doing well, No Copeland nor RUQ pain PO intake tolerated: yes Flatus: yes Ambulation: yes Vital Signs (12 hours) Temp Pulse Resp BP BP Pulse Ox 05/09/18 04:55 98.6 F 98 20 141/86 H 05/08/18 20:30 97.5 F L 108 H 20 126/60 97 Weight Weight 268 lb - Physical Examination Cardiovascular: no m/r/g Respiratory: clear to auscultation bilaterally Abdominal: + bowel sounds, lochia, no distention, appropriately TTP Extremities: negative homans (B) Skin: CS incision dry & intact Neurological: no gross focal deficits Psychiatric: A&Ox3, normal affect Result Diagrams: 05/07/18 05:29 05/06/18 10:29 Additional Labs: Post Labs Blood Type A POSITIVE 05/04/18 02:35 Hep Bs Antigen Non-Reactive S/CO (NonReactive) 05/04/18 08:35 (1) 36 weeks gestation of Code(s): Z3A.36 - 36 WEEKS GESTATION OF Status: Acute (2) Elevated blood pressure affecting in third trimester, antepartum Code(s): O16.3 - UNSPECIFIED MATERNAL HYPERTENSION, THIRD TRIMESTER Status: Acute (3) Elevated transaminase level Code(s): R74.0 - NONSPEC ELEV OF LEVELS OF TRANSAMNS & LACTIC ACID DEHYDRGNSE Status: Acute - Assessment/Plan OK for discharge home today with repeat BP check and lab at [facility] this week
[2018-05-09 08:37] VITALS: BP 140/84; TEMP 98.3
[2018-05-09] MEDS: Docusate Calcium (SURFAK) 240 MG CAP PO SCH (09:11)
[2018-05-09] MEDS: Prenatal Vitamin 1 TAB PO SCH (09:11)
[2018-05-09] MEDS: Simethicone Chewable 80 MG TAB PO PRN (09:21)
== END 2018-05-09 12:50 | disposition home or self-care (01) | DRG 765 ==
LOC: L&D/OP 23:29 → L&D 05-04 02:29 → 3SW 05-07 17:37
PROVIDERS: ADMIT Obstetrics & Gynecology; ATTEND Obstetrics & Gynecology
PROC: 10D00Z1 Extraction of Products of Conception, Low, Open Approach (ICD-10-PCS; principal; 2018-05-06)
PROC: 3E0P7VZ Introduction of Hormone into Female Reproductive, Via Natural or Artificial Opening (ICD-10-PCS; 2018-05-06)
DX: O14.14 Severe pre-eclampsia complicating childbirth (principal); Z68.43 Body mass index [BMI] 50.0-59.9, adult; O24.429 Gestational diabetes mellitus in childbirth, unspecified control; O69.0XX0 Labor and delivery complicated by prolapse of cord, not applicable or unspecified; O99.214 Obesity complicating childbirth; E66.9 Obesity, unspecified; O75.89 Other specified complications of labor and delivery; Z3A.36 36 weeks gestation of pregnancy; Z37.0 Single live birth
CPT/HCPCS: 36415; 36416; 51702; 76705; 76805; 80053; 80074; 80076; 81003; 82239; 82570; 82805; 83735; 84156; 85025; 85027; 86780; 86850; 86900; 86901; 87081; 87340; 99285; J0595; J0702; J1885; J2250; J2274; J2540; J3010; J3475; J3490; J7050